=== PATIENT | male | born 1975 | race Caucasian/White ===

== ENCOUNTER 2020-10-07 22:42 | Emergency (ER) | payer OTHER ==
[2020-10-07 23:36] LABS: HEMOGLOBIN 12.3 gm/dl (14.0-17.5); RED BLOOD COUNT 3.7 M/UL (4.20-5.50)
[2020-10-07 23:41] LABS: BUN/CREATININE RATIO 18 (0-10)
[2020-10-08] MEDS ORDERED: CEFUROXIME500 MG PO (00:44)
[2020-10-08] MEDS ORDERED: LODINE CAP 300300 MG PO (00:44)
[2020-10-08] MEDS ORDERED: HUMALOG100 UNIT/1 SC (01:06)
== END 2020-10-08 01:08 | disposition home or self-care (01) ==
LOC: ER1 22:42
PROVIDERS: Physician Assistant
DX: E11.65 Type 2 diabetes mellitus with hyperglycemia (principal); E11.621 Type 2 diabetes mellitus with foot ulcer; L97.529 Non-pressure chronic ulcer of other part of left foot with unspecified severity; I25.10 Atherosclerotic heart disease of native coronary artery without angina pectoris; Z90.49 Acquired absence of other specified parts of digestive tract; Z88.1 Allergy status to other antibiotic agents; Z88.8 Allergy status to other drugs, medicaments and biological substances
CPT/HCPCS: 80053; 82009; 82800; 82962; 83735; 84439; 84443; 85025; 85610; 85652; 85730; 86140; 96374; 96375; 99284; J0696; J1885

== ENCOUNTER 2020-10-11 11:21 | Emergency (ER) | payer OTHER ==
[~2020-10-11 11:21] MED LIST: CEFUROXIME500 MG PO; HUMALOG100 UNIT/1 SC; LODINE CAP 300300 MG PO
[2020-10-11 12:20] LABS: HEMOGLOBIN 13.7 gm/dl (14.0-17.5); RED BLOOD COUNT 4.08 M/UL (4.20-5.50); WHITE BLOOD COUNT 3.9 K/UL (4.5-11.0)
[2020-10-11 12:54] LABS: BUN/CREATININE RATIO 22 (0-10)
[2020-10-11] MEDS ORDERED: ZOFRAN4 MG PO (15:39)
[2020-10-11] MEDS ORDERED: BENTYL 10MG CAP10 MG PO (15:39)
[2020-10-11] MEDS ORDERED: FLAGYL500 MG PO (15:39)
[2020-10-11] MEDS ORDERED: AUGMENTIN 875-1 EACH PO (15:39)
== END 2020-10-11 16:06 | disposition home or self-care (01) ==
LOC: ER1 11:21
PROVIDERS: Physician Assistant Medical
DX: K52.9 Noninfective gastroenteritis and colitis, unspecified (principal); E11.9 Type 2 diabetes mellitus without complications; I10 Essential (primary) hypertension; Z90.49 Acquired absence of other specified parts of digestive tract; Z88.1 Allergy status to other antibiotic agents; Z88.8 Allergy status to other drugs, medicaments and biological substances; Z79.4 Long term (current) use of insulin; Z79.899 Other long term (current) drug therapy
CPT/HCPCS: 80053; 81001; 82009; 83605; 85025; 93005; 96374; 96375; 99284; J1885; J2405; J7030; Q9967

== ENCOUNTER 2020-10-25 02:20 | Inpatient (IN) | payer OTHER ==
[~2020-10-25] VITALS: Ht 185.4 cm; Wt 118.8 kg
[~2020-10-25 02:20] MED LIST changes: +AUGMENTIN 875-1 EACH PO; +BENTYL 10MG CAP10 MG PO; +FLAGYL500 MG PO; +ZOFRAN4 MG PO
[2020-10-25 03:12] LABS: HEMOGLOBIN 12.1 gm/dl (14.0-17.5); RED BLOOD COUNT 3.72 M/UL (4.20-5.50); WHITE BLOOD COUNT 4.9 K/UL (4.5-11.0)
[2020-10-25 03:28] LABS: BUN/CREATININE RATIO 23 (0-10)
[2020-10-25] MEDS ORDERED: BENADRYL25 MG PO (09:05)
[2020-10-25] MEDS ORDERED: NOVOLOG FL100 UNIT/1 INJ (09:05)
[2020-10-25] MEDS ORDERED: LEVEMIR FL100 UNIT/1 SC (09:06)
[2020-10-25] MEDS ORDERED: WELLBUTRIN XL300 M1 PO (09:06)
[2020-10-25] MEDS ORDERED: GEMFIBROZIL600 MG PO (09:07)
[2020-10-25] MEDS ORDERED: TYLENOL325 M1 PO (09:07)
[2020-10-25] MEDS ORDERED: TUMS200 MG PO (09:08)
[2020-10-25] MEDS ORDERED: ABILIFY5 MG PO (09:08)
[2020-10-26 02:46] LABS: BUN/CREATININE RATIO 25 (0-10)
[2020-10-26 09:10] LABS: HEMOGLOBIN 12.9 gm/dl (14.0-17.5); RED BLOOD COUNT 3.69 M/UL (4.20-5.50); WHITE BLOOD COUNT 5.9 K/UL (4.5-11.0)
[2020-10-26] MEDS ORDERED: LACTULOSE20 GM/30 M PO (10:06)
[2020-10-26] MEDS ORDERED: NORVASC10 MG PO (10:11)
== END 2020-10-26 15:11 | DRG 442 ==
LOC: ER1 02:20 → CDU 04:21 → PROG CARE 07:48
PROVIDERS: Emergency Medicine; Family Medicine; ADMIT Internal Medicine
DX: K72.90 Hepatic failure, unspecified without coma (principal); E72.20 Disorder of urea cycle metabolism, unspecified; I25.10 Atherosclerotic heart disease of native coronary artery without angina pectoris; F19.11 Other psychoactive substance abuse, in remission; R74.01 Elevation of levels of liver transaminase levels; K74.60 Unspecified cirrhosis of liver; I10 Essential (primary) hypertension; Z20.822 Contact with and (suspected) exposure to COVID-19; E10.40 Type 1 diabetes mellitus with diabetic neuropathy, unspecified; F41.9 Anxiety disorder, unspecified; Z86.19 Personal history of other infectious and parasitic diseases; Z90.49 Acquired absence of other specified parts of digestive tract; Z88.1 Allergy status to other antibiotic agents; Z95.5 Presence of coronary angioplasty implant and graft; Z88.8 Allergy status to other drugs, medicaments and biological substances; Z83.3 Family history of diabetes mellitus; Z82.49 Family history of ischemic heart disease and other diseases of the circulatory system; Z80.1 Family history of malignant neoplasm of trachea, bronchus and lung; Z79.4 Long term (current) use of insulin; Z79.899 Other long term (current) drug therapy
CPT/HCPCS: 0240U; 36415; 70450; 71045; 80053; 81001; 82140; 82550; 82553; 82962; 83735; 83874; 84100; 84484; 85025; 85610; 85730; 86140; 93005; 99285; G0480; J3411; J3475; J7030

== ENCOUNTER 2020-11-09 10:30 | Observation (INO) | payer OTHER ==
[~2020-11-09] VITALS: Ht 185.4 cm; Wt 127.2 kg
[~2020-11-09 10:30] MED LIST changes: +ABILIFY5 MG PO; +BENADRYL25 MG PO; +GEMFIBROZIL600 MG PO; +LACTULOSE20 GM/30 M PO; +LEVEMIR FL100 UNIT/1 SC; +NORVASC10 MG PO; +NOVOLOG FL100 UNIT/1 INJ; +TUMS200 MG PO; +TYLENOL325 M1 PO; +WELLBUTRIN XL300 M1 PO
[2020-11-09 11:33] LABS: HEMOGLOBIN 13.2 gm/dl (14.0-17.5); RED BLOOD COUNT 4.1 M/UL (4.20-5.50); WHITE BLOOD COUNT 6.3 K/UL (4.5-11.0)
[2020-11-09 12:12] LABS: BUN/CREATININE RATIO 20 (0-10)
[2020-11-09] MEDS ORDERED: INDERAL TAB 1010 MG PO (22:13)
[2020-11-09] MEDS ORDERED: PROZAC40 MG PO (22:14)
[2020-11-10 04:45] LABS: HEMOGLOBIN 11.9 gm/dl (14.0-17.5); WHITE BLOOD COUNT 5.4 K/UL (4.5-11.0)
[2020-11-10 04:52] LABS: RED BLOOD COUNT 3.57 M/UL (4.20-5.50)
[2020-11-10 05:06] LABS: BUN/CREATININE RATIO 19 (0-10)
[2020-11-10] MEDS ORDERED: XIFAXAN 550 MG550 MG PO (12:23)
[2020-11-10] MEDS ORDERED: LACTULOSE20 GM/30 M PO (12:23)
--- NOTE | 2020-11-10 13:09 | NUR ---
INSTRUCTED PATIENT TO TAKE ALL MEDS PRESCRIBED. KEEP FOLLOW UP APPOINTMENT WITH PCP. REPORT ANY CHANGE IN RESPIRATORY STATUS. VERBALIZED GIUSEPPE COLLINS R.N.
[2020-11-10] MEDS ORDERED: PROTONIX40 MG PO (22:13)
== END 2020-11-10 14:37 | disposition home or self-care (01) ==
LOC: ER1 10:30 → M/S 15:03 → CDU 15:03 → M/S 15:03
PROVIDERS: Family Medicine; Physician Assistant Medical; ADMIT Internal Medicine
DX: K72.00 Acute and subacute hepatic failure without coma (principal); E10.9 Type 1 diabetes mellitus without complications; I25.10 Atherosclerotic heart disease of native coronary artery without angina pectoris; F41.9 Anxiety disorder, unspecified; Z95.5 Presence of coronary angioplasty implant and graft; Z87.19 Personal history of other diseases of the digestive system; Z88.1 Allergy status to other antibiotic agents; Z88.8 Allergy status to other drugs, medicaments and biological substances; Z79.899 Other long term (current) drug therapy; Z20.822 Contact with and (suspected) exposure to COVID-19
CPT/HCPCS: 36415; 70450; 80053; 80307; 81001; 82140; 82962; 83605; 83690; 83735; 85025; 85027; 85610; 99285; G0378; G0480; J2060; U0002

== ENCOUNTER 2020-12-14 17:04 | Emergency (ER) | payer OTHER ==
[~2020-12-14] VITALS: Ht 185.4 cm; Wt 113.9 kg
[~2020-12-14 17:04] MED LIST changes: +INDERAL TAB 1010 MG PO; +PROTONIX40 MG PO; +PROZAC40 MG PO; +XIFAXAN 550 MG550 MG PO
[2020-12-14 17:56] LABS: HEMOGLOBIN 13.7 gm/dl (14.0-17.5); RED BLOOD COUNT 4.14 M/UL (4.20-5.50); WHITE BLOOD COUNT 3.2 K/UL (4.5-11.0)
[2020-12-14 18:20] LABS: BUN/CREATININE RATIO 15 (0-10)
[2020-12-14] MEDS ORDERED: DECADRON6 MG PO (22:32)
[2020-12-14] MEDS ORDERED: ASPIRIN EC81 MG PO (22:32)
== END 2020-12-14 23:50 | disposition home or self-care (01) ==
LOC: ER1 17:04
PROVIDERS: Emergency Medicine
DX: Z23 Encounter for immunization (principal); U07.1 COVID-19; E11.9 Type 2 diabetes mellitus without complications; I25.10 Atherosclerotic heart disease of native coronary artery without angina pectoris; Z88.1 Allergy status to other antibiotic agents
CPT/HCPCS: 0240U; 71045; 80053; 83690; 85025; 96374; 99284; J2405; M0243